=== PATIENT | female | born 1970 | race Caucasian/White ===

== ENCOUNTER 2017-01-31 12:49 | Outpatient (POV) | payer OTHER, SELFPAY | END 2017-01-31 16:18 | disposition home or self-care (01) | PROVIDERS: Family Provider Nurse Practitioner Family; PCP Nurse Practitioner Family; Visit Provider Urology | DX: N39.0 Urinary tract infection, site not specified (principal) | CPT/HCPCS: 99213; 81003 ==

== ENCOUNTER → 2018-04-18 10:12 | Outpatient (CLI) | payer OTHER, SELFPAY ==
--- NOTE | 2018-04-18 10:16 | MM_ITS ---
MM Dig screening mamm BI w/CAD ORDERING PHYSICIAN : Adrianna Ortiz PATIENT AGE: 47 years GENDER: Female COMPARISON: July 2014, December 2015, August 1999 23 June 2013 Previous cyst aspiration and needle biopsy right breast reported Family history. Maternal aunt with breast cancer in her 30s. Premenopausal INDICATION: ITS.REASON: SCREENING no hormones no new complaints TECHNIQUE: Standard CC and MLO images were obtained. R2 CAD reviewed. FINDINGS: Fairly dense bilaterally which does decrease sensitivity mammography. . RIGHT BREAST:Small area of nodularity is slightly more evident the superior right breast on MLO view. I suspect it was present in 2017 but stands out slightly more so today on MLO view. Doubt significance but would suggest spot views and ultrasound right breast. Suggest a MLO, & 90 degrees and cc spot view.I suspect this area is located I suspect area a is located at the central are lateral breast.. On the spot view should also include area labeled B on today's MLO view, which I believe is merely a summation shadow but noted towards superior breast on today's MLO view. There is a metallic percutaneous biopsy marker clip at the superior central right breast. LEFT BREAST:. Left breast appears stable with no focal new findings findings. Follow-up in one year. IMPRESSION: RIGHT BREAST:. Small area of nodularity Labeled A is slightly more apparent at superior breast on today's MLO view..- Unimpressive, could reflect merely small cyst here.However would recommend spot views and ultrasound to further evaluate.. (These spot view should include small area labeled B, likely summation shadow, noted on today's MLO view as well). LEFT BREAST. Moderately Dense Breast with No Significant New Findings. Follow-Up in One Year Adequate BI-RADS Category: 0 Need Additional Imaging Evaluation RECOMMENDED FOLLOW-UP: 1YR 1 YEAR FOLLOW-UP Spot views and ultrasound right breast (A letter has been sent to the patient regarding results of the study.)
== END ==
PROVIDERS: PCP Nurse Practitioner Family; Visit Provider Nurse Practitioner Family
DX: Z12.31 Encounter for screening mammogram for malignant neoplasm of breast (principal)
CPT/HCPCS: 77067

== ENCOUNTER → 2018-05-09 13:37 | Outpatient (CLI) | payer OTHER, SELFPAY ==
--- NOTE | 2018-05-09 13:40 | US_ITS ---
MM Dig mamm DX unilat RT CAD, US breast RT complete INDICATION: Follow-up abnormal mammogram ORDERING PHYSICIAN: Adrianna Ortiz PATIENT AGE: 47 years COMPARISON: 04/18/2018 TECHNIQUE: Problem solving views are performed along with right breast ultrasound FINDINGS: Average to dense fibroglandular tissue is present which could obscure underlying pathology. There is a persistent area of asymmetric density in the superior aspect of the right breast as seen on the MLO view. This measures 10 mm corresponding to the mammographic abnormality. Slight asymmetric density noted in the medial aspect of the right breast just posterior to a previously placed clip. Right breast ultrasound: At 9:00 there is a 6 x 5 mm area of decreased echogenicity which does not represent a simple cyst. There is some irregularity of the margins. There is some enhanced through transmission of sound however. Could correspond to the mammographic abnormality IMPRESSION: Solid appearing nodule at 9:00 and 6 x 5 mm. Ultrasound-guided biopsy suggested BI-RADS Category: 4 Suspicious Abnormality-Biopsy Considered RECOMMENDED FOLLOW-UP: BIO - BIOPSY RECOMMENDED (A letter has been sent to the patient regarding results of the study.)
== END ==
PROVIDERS: PCP Nurse Practitioner Family; Visit Provider Nurse Practitioner Family
DX: N63.10 Unspecified lump in the right breast, unspecified quadrant (principal)
CPT/HCPCS: 76641; 77065

== ENCOUNTER → 2018-06-06 09:25 | Outpatient (CLI) | payer OTHER, SELFPAY ==
--- NOTE | 2018-06-06 09:29 | US_ITS ---
FNA w guidance, US biopsy (core), US breast RT complete HISTORY: Suspicious right breast nodule seen on recent ultrasound ITS.REASON: RT BREAST MASS ORDERING PHYSICIAN: Adrianna Ortiz PATIENT AGE: 47 years COMPARISON: 05/09/2018 Prebiopsy ultrasound: Ultrasound was performed before the biopsy for planning. The previously noted suspicious nodule at 9:00 was again seen an appropriate area marked for the biopsy. Mammotome was not performed due to the deep location of the nodule which is adjacent to the chest wall. TECHNIQUE: Following obtaining informed consent, using aseptic technique and local anesthesia with buffered lidocaine, fine-needle aspiration was performed of the nodule of interest using sonographic guidance. A single pass was made into the nodule with a 25-gauge needle. No fluid was able to be aspirated. Specimen was given to cytology. Scanning was performed and a 16-gauge Santy-Cut biopsy needle was inserted. 3 cores were performed and specimens were obtained and submitted to pathology The patient tolerated the procedure well without evidence of immediate complications and left the ultrasound suite in stable condition. CYTOLOGY:Negative for malignancy Pathology: Benign breast with stromal fibrosis. Negative for carcinoma. IMPRESSION: Successful sonographic guided findings aspiration and core biopsy of right breast nodule. No evidence of carcinoma. Recommend follow-up ultrasound in 6 months to confirm stability
== END ==
PROVIDERS: PCP Nurse Practitioner Family; Visit Provider Nurse Practitioner Family
DX: N63.10 Unspecified lump in the right breast, unspecified quadrant (principal)
CPT/HCPCS: 10022; 76641; 76942

== ENCOUNTER → 2019-05-22 07:52 | Outpatient (CLI) | payer OTHER, SELFPAY ==
--- NOTE | 2019-05-22 07:54 | MM_ITS ---
PROCEDURE: MM DIG SCREENING MAMM BI W/CAD CLINICAL INDICATION: Routine Screening Mammogram There is a history of breast cancer patient's maternal aunt diagnosed before menopause. There has been previous biopsy right breast for benign disease. COMPARISON: [facility] DIG MAMM-SCREEN JENNI W/CAD from 12/23/2016 [facility] MM Dig screening mamm BI w/CAD from 04/18/2018 DXRT MM Dig mamm DX unilat RT CAD from 05/09/2018 TECHNIQUE: Standard CC and MLO images were obtained. R2 CAD reviewed. FINDINGS: Prominent heterogenic fibroglandular densities are seen in the central portions of both breasts and the findings of bilateral and symmetrical. There is a biopsy clip right breast. There is a mole marker left breast. There is no suspicious lesion and no suspicious microcalcifications. IMPRESSION: Stable exam with no suspicious lesions seen BI-RAD Category: 2 Benign Finding(s) FOLLOW-UP: 1YR 1 Year Follow-up (A letter has been sent to the patient regarding results of the study.) Dictated by: Dr. Juan C Walton MD 05/23/2019 14:[address] Juan C Walton MD in [place] 05/23/2019 14:58
== END ==
PROVIDERS: PCP Nurse Practitioner Family; Visit Provider Nurse Practitioner Obstetrics & Gynecology
DX: Z12.31 Encounter for screening mammogram for malignant neoplasm of breast (principal)
CPT/HCPCS: 77067

== ENCOUNTER → 2020-05-28 08:05 | Outpatient (CLI) | payer OTHER, SELFPAY ==
--- NOTE | 2020-05-28 08:09 | MM_ITS ---
PROCEDURE: MM DIG SCREENING MAMM BI W/CAD Digital Breast Tomosynthesis Included CLINICAL INDICATION: screening xmg There is a history of breast cancer patient's maternal aunt diagnosed before menopause. There has been a previous biopsy right breast for benign disease. COMPARISON: MG [facility] MM Dig screening mamm BI w/CAD from 04/18/2018 MG DXRT MM Dig mamm DX unilat RT CAD from 05/09/2018 MG MM DIG SCREENING MAMM BI W/CAD from 05/22/2019 TECHNIQUE: Standard CC and MLO images and 3D Tomosynthesis was obtained. R2 CAD reviewed. FINDINGS: Prominent diffuse somewhat heterogenic fibroglandular densities are seen in the central portions of both breast. There is a mole marker left breast, there is a biopsy clip right breast. There are no CAD markings. Harish images are most helpful in this type of heterogenic breast parenchyma I see no suspicious lesion in either breast. There are no suspicious microcalcifications. IMPRESSION: Stable heterogenic breast parenchyma with no suspicious lesions seen BI-RAD Category: 2 Benign Finding(s) FOLLOW-UP: 1YR 1 Year Follow-up (A letter has been sent to the patient regarding results of the study.) Dictated by: Dr. Juan C Walton MD 05/31/2020 08:57 Dr. Juan C Walton MD in [place] 05/31/2020 08:57
== END ==
PROVIDERS: PCP Nurse Practitioner; Visit Provider Nurse Practitioner Obstetrics & Gynecology
DX: Z12.31 Encounter for screening mammogram for malignant neoplasm of breast (principal)
CPT/HCPCS: 77063; 77067

== ENCOUNTER → 2021-06-10 16:34 | Outpatient (CLI) | payer BC, SELFPAY ==
--- NOTE | 2021-06-10 16:36 | MM_ITS ---
PROCEDURE INFORMATION: Exam: MG Bilateral Screening 3D Mammography Exam date and time: 06/10/2021 4:36 PM Age: 50 years old Clinical indication: Encounter for screening mammogram for malignant neoplasm of breast TECHNIQUE: Imaging protocol: Bilateral screening tomosynthesis and 2D mammography including computer-aided detection (CAD) when performed. COMPARISON: 1. MG MM DIG SCREENING MAMM BI W/CAD 05/28/2020 8:08 AM 2. MG MM DIG SCREENING MAMM BI W/CAD 05/22/2019 8:21 AM FINDINGS: MAMMOGRAPHY: Breast composition: The breast tissue is heterogeneously dense, which may obscure small masses. Mass: None. Architectural distortion: None. Calcifications: No suspicious calcifications. Asymmetric density: None. Skin thickening: None. Axillary adenopathy: None. IMPRESSION: No mammographic evidence of malignancy. Annual screening is recommended unless otherwise clinically indicated. ASSESSMENT: BI-RADS Category 1: Negative
== END ==
PROVIDERS: PCP Nurse Practitioner; Visit Provider Nurse Practitioner
DX: Z12.31 Encounter for screening mammogram for malignant neoplasm of breast (principal)
CPT/HCPCS: 77063; 77067

== ENCOUNTER → 2022-06-30 09:45 | Outpatient (CLI) | payer BC, SELFPAY ==
--- NOTE | 2022-06-30 09:49 | MM_ITS ---
PROCEDURE INFORMATION: Exam: MG Bilateral Screening 3D Mammography Exam date and time: 06/30/2022 9:43 AM Age: 51 years old Clinical indication: Screening examination TECHNIQUE: Imaging protocol: Bilateral Screening tomosynthesis and 2D mammography including computer-aided detection (CAD) when performed. COMPARISON: 1. MG MM DIG SCREENING MAMM BI W/CAD 06/10/2021 4:33 PM 2. MG MM DIG SCREENING MAMM BI W/CAD 05/28/2020 8:08 AM FINDINGS: MAMMOGRAPHY: Breast composition: The breasts are heterogeneously dense, which may obscure small masses. Mass: None. Architectural distortion: None. Calcifications: No suspicious calcifications. Asymmetric density: None. Skin thickening: None. Axillary adenopathy: None. IMPRESSION: No mammographic evidence of malignancy. Annual screening is recommended unless otherwise clinically indicated. ASSESSMENT: BI-RADS Category 1: Negative
== END ==
PROVIDERS: PCP Nurse Practitioner; Visit Provider Nurse Practitioner
DX: Z12.31 Encounter for screening mammogram for malignant neoplasm of breast (principal)
CPT/HCPCS: 77063; 77067

== ENCOUNTER 2023-07-20 14:05 | Outpatient (CLI) | payer BC, SELFPAY ==
--- NOTE | 2023-07-20 14:17 | MM_ITS ---
PROCEDURE INFORMATION: Exam: MG Bilateral Screening 3D Mammography Exam date and time: 07/20/2023 2:42 PM Age: 53 years old Clinical indication: Screening mammogram TECHNIQUE: Imaging protocol: Bilateral Screening tomosynthesis and 2D mammography including computer-aided detection (CAD) when performed. COMPARISON: 1. MG MM DIG SCREENING MAMM BI W/CAD 06/30/2022 9:43 AM 2. MG MM DIG SCREENING MAMM BI W/CAD 06/10/2021 4:33 PM 3. MG MM DIG SCREENING MAMM BI W/CAD 05/28/2020 8:08 AM 4. MG MM DIG SCREENING MAMM BI W/CAD 05/22/2019 8:21 AM FINDINGS: MAMMOGRAPHY: Breast composition: The breast is heterogeneously dense, which may obscure small masses. Mass: None. Architectural distortion: No new or suspicious architectural distortion. Calcifications: No new or suspicious calcifications are present Asymmetric density: No new or suspicious asymmetric density is present Skin thickening: None. Axillary adenopathy: None. IMPRESSION: No mammographic evidence of malignancy. Recommend annual screening mammography unless otherwise clinically indicated. ASSESSMENT: BI-RADS category 1: Negative
== END 2023-07-20 23:59 ==
LOC: RAD 14:06
PROVIDERS: PCP Nurse Practitioner Family; Visit Provider Nurse Practitioner Family
DX: Z12.31 Encounter for screening mammogram for malignant neoplasm of breast (principal)
CPT/HCPCS: 77063; 77067

== ENCOUNTER 2024-08-08 09:41 | Outpatient (CLI) | payer BC, SELFPAY ==
--- NOTE | 2024-08-08 09:44 | MM_ITS ---
PROCEDURE INFORMATION: Exam: MG Bilateral Screening 3D Mammography Exam date and time: 08/08/2024 9:55 AM Age: 54 years old Clinical indication: Screening examination TECHNIQUE: Imaging protocol: Bilateral Screening tomosynthesis and 2D mammography including computer-aided detection (CAD) when performed. COMPARISON: 1. MG MM DIG SCREENING MAMM BI W/CAD 07/20/2023 2:42 PM 2. MG MM DIG SCREENING MAMM BI W/CAD 06/30/2022 9:43 AM FINDINGS: MAMMOGRAPHY: Breast composition: There are scattered areas of fibroglandular density. Mass: None. Architectural distortion: None. Calcifications: No suspicious calcifications. Asymmetric density: None. Skin thickening: None. Axillary adenopathy: None. IMPRESSION: No mammographic evidence of malignancy. Annual screening is recommended unless otherwise clinically indicated. ASSESSMENT: BI-RADS Category 1: Negative.
== END 2024-08-08 23:59 | disposition home or self-care (01) ==
LOC: RAD 09:42
PROVIDERS: PCP Nurse Practitioner Family; Visit Provider Nurse Practitioner Family
DX: Z12.31 Encounter for screening mammogram for malignant neoplasm of breast (principal)
CPT/HCPCS: 77063; 77067

== ENCOUNTER 2024-10-07 17:00 | Outpatient (RCR) | payer BC, SELFPAY | END 2024-10-07 23:59 | disposition home or self-care (01) | LOC: PT 17:00 | PROVIDERS: PCP Nurse Practitioner Family; Visit Provider Specialist/Technologist Athletic Trainer | DX: M54.50 Low back pain, unspecified (principal) | CPT/HCPCS: 97014; 97110; 97140; 97163; G0283 ==

== ENCOUNTER 2024-10-17 10:00 | Outpatient (RCR) | payer BC, SELFPAY | END 2024-11-05 09:08 | disposition home or self-care (01) | LOC: PT 10:00 | PROVIDERS: PCP Nurse Practitioner Family; Visit Provider Specialist/Technologist Athletic Trainer | DX: M54.50 Low back pain, unspecified (principal) | CPT/HCPCS: 97110 ==